=== PATIENT | female | born 1975 | race Caucasian/White ===

== ENCOUNTER 2017-01-28 12:01 | Emergency (ER) | payer MEDICAID ==
[2017-01-28 15:02] LABS: BASOPHIL % 0.6 % (0-2); PLATELET COUNT 336 x10^3mcL (130-400); RED CELL DISTRIBUTION WIDTH 13.3 % (11.5-14.5)
[2017-01-28 15:15] LABS: microscopic required? YES; urine erythrocyte NEGATIVE (NEGATIVE)
[2017-01-28 15:19] LABS: ALBUMIN 3.5 g/dL (3.4-5.0); ALKALINE PHOSPHATASE 78 U/L (46-116); ALT/SGPT 23 U/L (14-59); AST/SGOT 13 U/L (15-37); BILIRUBIN TOTAL 0.48 mg/dL (0.20-1.00); CALCIUM 9.2 mg/dL (8.5-10.1); CARBON DIOXIDE 26.7 mmol/L (21-32); CHLORIDE SERUM 94 mmol/L (98-107); CREATININE SERUM 0.5 mg/dL (0.6-1.0); GFR1 > 60 mL/min; GLUCOSE SERUM 123 mg/dL (74-106); LIPASE 271 IU/L (73-393); SODIUM SERUM 133 mmol/L (136-145); TOTAL PROTEIN, SERUM 7.4 g/dL (6.4-8.2)
[2017-01-28 15:24] LABS: POTASSIUM SERUM 2.7 mmol/L (3.5-5.1)
[2017-01-28 17:22] VITALS: BP 135/86
== END 2017-01-28 17:22 | disposition home or self-care (01) ==
LOC: ED 12:01
PROVIDERS: Emergency Medicine
DX: N12 Tubulo-interstitial nephritis, not specified as acute or chronic (principal); E11.9 Type 2 diabetes mellitus without complications; Z79.84 Long term (current) use of oral hypoglycemic drugs
CPT/HCPCS: 82962; J0696; J2405; J7030

== ENCOUNTER 2018-06-23 17:20 | Emergency (ER) | payer MEDICAID ==
[~2018-06-23] VITALS: Ht 142.2 cm; Wt 45.4 kg
[2018-06-23 17:46] VITALS: Ht 142.2 cm; Wt 45.4 kg
[2018-06-23 19:14] LABS: BASOPHIL % 0.2 % (0-2); PLATELET COUNT 239 x10^3mcL (130-400); RED CELL DISTRIBUTION WIDTH 13.1 % (11.5-14.5)
[2018-06-23 19:25] LABS: CALCIUM 8.4 mg/dL (8.5-10.1); CARBON DIOXIDE 28.2 mmol/L (21-32); CHLORIDE SERUM 100 mmol/L (98-107); CREATININE SERUM 0.6 mg/dL (0.6-1.0); GFR1 > 60 mL/min; GLUCOSE SERUM 146 mg/dL (74-106); POTASSIUM SERUM 3.5 mmol/L (3.5-5.1); SODIUM SERUM 137 mmol/L (136-145)
[2018-06-23 19:35] LABS: ALKALINE PHOSPHATASE 96 U/L (46-116); ALT/SGPT 20 U/L (14-59); AMYLASE 50 U/L (25-115); AST/SGOT 11 U/L (15-37); BILIRUBIN TOTAL 0.36 mg/dL (0.20-1.00); LIPASE 115 IU/L (73-393); TOTAL PROTEIN, SERUM 7.2 g/dL (6.4-8.2)
[2018-06-23 19:42] LABS: ALBUMIN 3.2 g/dL (3.4-5.0)
[2018-06-23 20:14] VITALS: BP 99/68
== END 2018-06-23 20:10 | disposition home or self-care (01) ==
LOC: ED 17:20
PROVIDERS: Emergency Medicine
DX: R10.13 Epigastric pain (principal); E11.9 Type 2 diabetes mellitus without complications; R11.10 Vomiting, unspecified
CPT/HCPCS: J1885; Q0092

== ENCOUNTER 2018-07-13 10:32 | Inpatient (IN) | payer MEDICAID ==
[~2018-07-13] VITALS: Ht 149.9 cm; Wt 45.0 kg
[2018-07-13 10:35] VITALS: Ht 149.9 cm; Wt 45.0 kg
--- NOTE | 2018-07-13 11:13 | NUR ---
PT AAOX3, VSS, BREATHING EASY AND UNLABORED. PT MEDICATED PER ERP'S ORDERS AND RESTING COMFORTABY IN BED. BLANKET OFFERED TO PT.
--- NOTE | 2018-07-13 11:32 | NUR ---
PT AWARE OF NEEDED URINE SPECIMEN.
[2018-07-13 11:44] LABS: BASOPHIL % 0.2 % (0-2); PLATELET COUNT 254 x10^3mcL (130-400); RED CELL DISTRIBUTION WIDTH 13.1 % (11.5-14.5)
--- NOTE | 2018-07-13 11:46 | NUR ---
PT REPORTS FEELING "LITTLE" DIZZY. PT ASSISTED VIA WHEELCHAIR BY JUSTUS SOTO.
[2018-07-13 11:50] LABS: CALCIUM 9.1 mg/dL (8.5-10.1); CARBON DIOXIDE 25.3 mmol/L (21-32); CHLORIDE SERUM 98 mmol/L (98-107); CREATININE SERUM 0.6 mg/dL (0.6-1.0); GFR1 > 60 mL/min; GLUCOSE SERUM 116 mg/dL (74-106); POTASSIUM SERUM 3.9 mmol/L (3.5-5.1); SODIUM SERUM 133 mmol/L (136-145)
[2018-07-13 11:59] LABS: ALKALINE PHOSPHATASE 103 U/L (46-116); ALT/SGPT 23 U/L (14-59); AST/SGOT 15 U/L (15-37); BILIRUBIN TOTAL 0.2 mg/dL (0.20-1.00); LIPASE 335 IU/L (73-393); TOTAL PROTEIN, SERUM 7.2 g/dL (6.4-8.2)
[2018-07-13 12:00] LABS: ALBUMIN 3.2 g/dL (3.4-5.0)
--- NOTE | 2018-07-13 13:29 | NUR ---
NO VOMITING AT THIS TIME.
--- NOTE | 2018-07-13 14:08 | NUR ---
PT VOMITED X1. DR WHITAKER, ERP, MADE AWARE.
--- NOTE | 2018-07-13 14:35 | NUR ---
DR WHITAKER, ERP, MADE AWARE OF PT'S C/O OF 10/10 EPIGASTRIC PAIN.
[2018-07-13 16:09] VITALS: BP 111/65
--- NOTE | 2018-07-13 16:12 | NUR ---
RECEIVED PT FROM ED VIA [employer]. ORIENTED PT TO ROOM AND SURROUNDINGS. IV NOTED TO RFA PATENT AND INTACT. INSTRUCTED PT ON THE USE OF CALL LIGHT FOR ASSISTANCE. BED IN LOWEST POSITION AND SIDE RAILS UPX2
--- NOTE | 2018-07-13 18:11 | NUR ---
PT AA/OX4. TEMP 98.6F TEMPORAL. NO REAVES. NO DIZZINESS. NAUSEOUS WITH DINNER. DECLINED TO MEDICATION AT THIS TIME. PT SHIVERING. WARM BLANKET GIVEN. NO S/S OF ACUTE DISTRESS. RR EVEN/UNLABORED. CHEST EXPANSION SYMMETRICAL. DENIES CHEST PAIN. FAMILY AT BEDSIDE. NO COUGH NOTED. BED IN LOW POSITION. CALL LIGHT WITHIN REACH. WILL ENDORSE TO ONCOMING SHIFT.
--- NOTE | 2018-07-13 20:00 | NUR ---
RECEIVED PT IN BED, A/OX4. DENIES HEADACHE/DIZZINESS. RESP. EVEN AND UNLABORED. LUNG SOUNDS CLEAR BILAT. ON ROOM AIR, NO ACUTE DISTRESS NOTED. AFEBRILE AND VITAL SIGNS STABLE. NO TELE,DENIES CP OR ANY DISCOMFORT AT THIS TIME. IVF, NS AT 50ML/HR, INTACT AND INFUSING VIA RFA, SITE CLEAR. ABD. SOFT, NON DISTENDED, NO N/V NOTED AT THIS TIME. PT STATES UNABLE TO PATRICIA. PO . ASSISTED WITH HS CARE. CALL LIGHT WITHIN REACH. WILL CONTINUE TO MONITOR.
[2018-07-13 20:45] VITALS: BP 97/73
--- NOTE | 2018-07-14 00:16 | NUR ---
NO COMPLAINTS NOTED AT THIS TIME. EYES CLOSED, APPEARS ASLEEP, EASILY AROUSABLE. CALL LIGHT WITHIN REACH. WILL CONTINUE TO MONITOR.
--- NOTE | 2018-07-14 03:00 | NUR ---
ASSISTED TO [facility] BATHROOM, VOIDED.NO COMPLAIN NOTED AT THIS TIME. WILL CONTINUE TO MONITOR.
[2018-07-14 05:55] VITALS: BP 107/62
--- NOTE | 2018-07-14 06:29 | NUR ---
SLEPT WELL DURING THE NIGHT. NO COMPLAINTS NOTED. DUE MEDS GIVEN ORDERED. AFEBRILE AND VITAL SIGNS STABLE. RESP. EVEN AND UNLABORED. NO ACUTE DISTRESS NOTED. IVF INTACT AND INFUSING WELL, SITE CLEAR.DENIES ANY PAIN OR DISCOMFORT AT THIS TIME. NO BM NOTED . WILL CONTINUE TO MONITOR.
--- NOTE | 2018-07-14 08:00 | NUR ---
RECEIVED PATIENT SITTING UP IN BED A/O X4, CLEAR SPEECH, NO NEURO DEFICITS NOTED. BREATHING EVEN UNLABBORED ON RA, DENIES SOB, HOB ELEVATED. PATIENT VOMITED ABOUT 400 ML OF EMESIS AFTER EATING BREAKFAST, STATES SHE VOMITS AFTER SHE EATS. MEDICATED PATIENT WITH ZOFRAN 4 MG IVP (SEE eMAR). IV TO RFA INTACT INFUSING NS AT 50 ML/HR FREE FROM REDNESS AND INFILTRATION. ALL NEEDS ATTENDED TO. SAFETY PRECAUTIONS IN PLACE. WILL MONITOR.
--- NOTE | 2018-07-14 08:20 | NUR ---
SARAH FEDERAL JAVA DEVELOPER AT BEDSIDE TO SPEAK WITH PATIENT. INFORMED SARAH PATIENT CONTINUES TO THROW UP AFTER EVERY TIME SHE EATS, PATIENT THREW UP AFTER EATING BREAKFAST AND WAS GIVEN ZOFRAN IVP AT 0800. PER SARAH WILL CHANGE DIET TO CLEAR LIQUID AND WILL CONTACT TONYA SHIN TO EVALUATE PATIENT. PATIENT VERBALIZED UNDERSTANDING, ALL QUESTIONS AND CONCERNS ADDRESSED. SAFETY PRECAUTIONS IN PLACE.
--- NOTE | 2018-07-14 09:47 | NUR ---
RECEIVED CALL FROM ALEIDA WHO ASKED IF PATIENT IS NPO, INFORMED DR. SHIN PATIENT DID EAT BREAKFAST BUT THREW UP AFTER SHE WAS DONE AND WAS GIVEN ZOFRAN IVP AT 0800. DR. SHIN ASKED IF PATIENT SMOKES MARIJUANA, INFORMED DR. SHIN UNKNOWN IF PATIENT SMOKES MARIJUANA. PER DR. SHIN ORDER URINE DRUG SCREEN. WILL CARRY OUT ORDER. NURSE AID MADE AWARE.
[2018-07-14 10:26] VITALS: BP 126/81
[2018-07-14 11:53] LABS: AMPHETAMINE QUAL UR NONE DETECTED (See below)
--- NOTE | 2018-07-14 13:35 | NUR ---
PATIENT SITTING UP IN BED C/O N/V, MEDICATED WITH REGLAN IVP (SEE eMAR). ALL NEEDS ATTENDED TO. SAFETY PRECAUTIONS IN PLACE. WILL MONITOR.
--- NOTE | 2018-07-14 17:07 | NUR ---
PATIENT SITTING UP IN BED, DAUGHTER AT BEDSIDE. DUE MEDICATION GIVEN, TOLERATED WELL. ALL NEEDS ATTENDED TO. SAFETY PRECAUTIONS IN PLACE. WILL MONITOR.
[2018-07-14 17:46] VITALS: BP 110/63
--- NOTE | 2018-07-14 20:11 | NUR ---
SHIFT REASSESMENT DONE.PATIENT ALERT AND ORIENTED X 4.MAINLY [place]EN[place].NEEDS ANTICIPATED.BREATHING EASY.BRP AMBULATORY.NS AT 100 CC/ HOUR RFA.MEDS URG PATIENT.CLAIMED HER LAST BM 06/22/18.DO NOT HAVE APPETITE/NAUSEA SINCE ADMIT.SCD ORDERED.VOIDING PER BRP.CALL LIGHT IN REACH.
--- NOTE | 2018-07-14 21:00 | NUR ---
NEW ARMBAND APPLIED,ED ARMBAND REMOVED.
[2018-07-14 21:22] VITALS: BP 106/65
--- NOTE | 2018-07-14 22:16 | NUR ---
ALL PM MEDS GIVEN WITHOUT ANY INCIDEDNT,GIVEN DULCOLAX,RECORD SAYS LAST BM 06/22/18
--- NOTE | 2018-07-15 00:41 | NUR ---
PATIENT HAD DULCOLAX TAB X 2 EARLIER,CRAMPING NOW BECAUSE OF DULCOLAX.DR ROGERS MADE AWARE.
--- NOTE | 2018-07-15 01:26 | NUR ---
DR ROGERS ORDERED TORADOL 30 MG IVP AND GIVEN.
--- NOTE | 2018-07-15 02:03 | NUR ---
PATIENT NOW NOT CRYING NOW,HAD TORADOL IVP.
[2018-07-15 05:52] VITALS: BP 111/65
[2018-07-15 05:54] VITALS: BP 142/70
--- NOTE | 2018-07-15 06:09 | NUR ---
ABLE TO REST,I AND O MEASURED.NS AT 100 CC/ HOUR.WILL ENDORSE TO NEXT SHIFT.
[2018-07-15 07:16] LABS: CALCIUM 8.5 mg/dL (8.5-10.1); CARBON DIOXIDE 24.9 mmol/L (21-32); CHLORIDE SERUM 105 mmol/L (98-107); CREATININE SERUM 0.4 mg/dL (0.6-1.0); GFR1 > 60 mL/min; GLUCOSE SERUM 118 mg/dL (74-106); POTASSIUM SERUM 3.6 mmol/L (3.5-5.1); SODIUM SERUM 138 mmol/L (136-145)
--- NOTE | 2018-07-15 08:00 | NUR ---
RECEIVED PATIENT WHO IS SLEEPING SOUNDLY AT THIS TIME. CONTINUED ON IV FLUIDS AND TOLERATE WELL SO FAR. CONTINUED ON REGLAN AND PROTONIX ORDERED. PATIENT AHS DIMINISHED BUT CLEAR BREATH SOUNDS AND BOWEL SOUNDS ARE HYPOACTIVE AT THIS TIME. PATIENT HAS BEEN ADMITTED FOR ABDOMINAL PAIN AND GASTROPARESIS. PATIENT HAS HISTORY OF DIABETES TYPE TWO. PATIENT HAD THE BLOOD SUGAR AT 107 THIS AM AND HAS BEEN WITH CLEAR LIQUID DIET AND HAS BEEN WITH NOTED VITALS AT 124/71, 92, 18, 95%, 97.8. CT IS NEGATIVE FOR DIVERTCULI OR GALLSTONES. SHE HAS BEEN NEGATIVE FOR KIDNEY STONES OR MASS. PATIENT HAS NOTED LABS OF WBC AT 12.5 AND SHE HAS AIC AT 7.0. WILL CONTINUE ON PRESENT PLAN OF CARE. NO ACUTE DISTRESS AT THIS TIME.
[2018-07-15 08:03] LABS: BASOPHIL % 0.3 % (0-2); PLATELET COUNT 215 x10^3mcL (130-400); RED CELL DISTRIBUTION WIDTH 13.2 % (11.5-14.5)
[2018-07-15 09:40] VITALS: BP 124/77
--- NOTE | 2018-07-15 10:58 | NUR ---
GAVE PROTONIX AND SHE IS MOSTLY SLEEPING AT THIS TIME SHE WOKE UP AND HAS THE HICCUPS. WILLL MONITO RFOR VOMITING AND CONTINUE NAUSEA.
--- NOTE | 2018-07-15 12:40 | NUR ---
DR XIONG AT THIS TIME HERE TO SEE PATIENT AND PER DR XIONG PATIENT CAN BE DISCHARGED HOME TODAY. SARAH -FOOD AND BEVERAGE ASSISTANT MADE AWARE. NO NEW ORDERS RECEIVED AT THIS TIME. ATTENDING NURSE MAU BAGLEY.
--- NOTE | 2018-07-15 13:57 | NUR ---
PERIODIC HICUPS NOTED AND PATIENT SO FAR HAS NOT HAD AN EMESIS.
--- NOTE | 2018-07-15 16:31 | NUR ---
DAUGHTER AT BEDSIDE AND PATIENT TOELRATED LUNCH OF LIQUID DIET. SHE HAS NOT REPORTED ANY VOMITING. CONTINUED ON PRESENT PLAN OF CARE.
[2018-07-15 17:37] VITALS: BP 105/68
--- NOTE | 2018-07-15 18:08 | NUR ---
TOLERATED THE CLEAR LIQUID DIET AND GAVE CARAFATE ORDERED. NO EMESIS AT THIS TIME.
--- NOTE | 2018-07-15 19:15 | NUR ---
REPORT RECIEVED FROM DAY SHIFT RN. PATIENT WAS SEEN AND IS RESTING COMOFRTBALY IN BED AT THIS TIME. ON ROOM AIR. NO SOB OR DISTRESS NOTED. DENIES CHEST PAIN. NO C/O OF PAIN. IV TO THE RFA WITH NS RUNNING AT 100ML/HR. PATENT AND INTACT. NO REDNESS OR SWELLING NOTED. PATENT STATES SHE IS SLIGHTLY NAUSEOUS AT THIS TIME. COMFORT AND SAFETY MEASURES MAINTAINED. BED IS LOCKED AND IN THE LOWEST POSITION. SIDE RAILS UP X2. CALL LIGHT IS WITHIN REACH. INSTRUCTED PATIENT TO CALL FOR ASSISTANCE. PATIENT VERBALIZED UNDERSTANDING. WILL CONTINUE TO MONITOR.
[2018-07-15 21:25] VITALS: BP 102/56
--- NOTE | 2018-07-16 02:06 | NUR ---
WBC IS ELEVATED AT 12.5. DR. ROGERS NOTIFIED AND AWARE. PATIENT'S TEMP IS 97.7. NOT SYMPTOMATIC. DR. ROGERS STATED TO WAIT FOR AM LABS. WILL CONTINUE TO MONITOR PATIENT AND HER TEMP.
--- NOTE | 2018-07-16 02:48 | NUR ---
PATIENT THREW UP 200ML CLEAR YELLOW COLOR.
--- NOTE | 2018-07-16 03:03 | NUR ---
PATIENT IS RESTING COMFORTBALY IN BED AT THIS TIME. NO SOB OR DISTRESS NOTED. BREATHING IS EVEN AND UNLABORED. IV INFUSING WELL TO THE RFA. CALL LIGHT SI WITHIN REACH. INSTRUCTED PATIENT TO PEE IN THE HAT FOR UA. INSTURCTED PATIENT TO CALL FOR ASSISTANCE. WILL CONTINUE TO MONITOR
[2018-07-16 03:43] LABS: microscopic required? YES; urine erythrocyte 2+ (NEGATIVE)
[2018-07-16 05:05] VITALS: BP 137/63
--- NOTE | 2018-07-16 06:34 | NUR ---
PATIENT SLEPT IN INTERVALS THROUGHOUT THE NIGHT. ON ROOM AIR. NO ACUTE CHANGES NOTED. BREATHING IS EVEN AND UNLABORED. PATIENT STATES SHE HAS EPIGASTRIC PAIN, BUT DID NOT WANT PRN PAIN MEDS. COMFORT AND SAFETY MEASURES MAINTAINED. CALL LIGHT IS WITHIN REACH. PATIENT AWARE TO CALL FOR ASSISTANCE. BED IS LOCKED AND IN THE LOWEST POSITION. SIDE RAILS UP X2. WILL ENDORSE CARE TO DAY SHIFT RN.
[2018-07-16 07:24] LABS: BASOPHIL % 0.4 % (0-2); PLATELET COUNT 226 x10^3mcL (130-400); RED CELL DISTRIBUTION WIDTH 13.4 % (11.5-14.5)
--- NOTE | 2018-07-16 07:35 | NUR ---
PT RESTING IN BED, NO ACUTE DISTRESS NOTED. AOX4, DENIES REAVES/DIZZINESS. MEDSURH PT, DENIES CP. PULSES PALPABLE BIALT, DENIES NUMBNESS/TINGLING IN FEET. RESP EVEN AND UNLABORED ON RA, DENIES SOB. ABD SOFT, ROUND, DENIES ABD PAIN. PT DENIES NAUSEA AT THIS TIME. BRP, DENIES DYSURIA. AMBULATORY. SKIN INTACT. IV SITE TO RFA PATENT, NO REDNESS, SWELLING OR PAIN NOTED. ALL COMFORT AND SAFETY MEASURES PROVIDED FOR CALL LIGHT WITHIN REACH, BED IN LOWEST POSITION, WILL CONTINUE TO MONITOR.
[2018-07-16 07:47] LABS: CARBON DIOXIDE 26.2 mmol/L (21-32); CHLORIDE SERUM 104 mmol/L (98-107); CREATININE SERUM 0.4 mg/dL (0.6-1.0); GFR1 > 60 mL/min; GLUCOSE SERUM 125 mg/dL (74-106); MAGNESIUM 1.5 mg/dL (1.8-2.4); SODIUM SERUM 139 mmol/L (136-145)
[2018-07-16] MEDS ORDERED: CARAFATE1 GM PO (08:55)
[2018-07-16] MEDS ORDERED: PROTONIX20 MG PO (08:55)
[2018-07-16] MEDS ORDERED: GLU500 PO (08:56)
[2018-07-16 10:07] VITALS: BP 122/70
[2018-07-16 10:17] VITALS: BP 122/70
--- NOTE | 2018-07-16 12:15 | NUR ---
ENDORSED ALL CARE TO DAYSHIFT NURSE, ALL QUESTIONS AND CONCERNS ADDRESSED, NO ACUTE DISTRESS NOTED. CALL LIGHT WITHIN REACH, BED IN LOWEST POSITION.
--- NOTE | 2018-07-16 12:15 | NUR ---
DISCHARGE INSTRUCTIONS GIVEN TO PT INCLUDING FOLLOW-UP W/ PCP. NEW PRESCRIPTION REVIEWED W/ THE PT. TELEPHONE PRIMER ASSEMBLER USED W/ [employer] NUMBER [id number]. PT VERBALIZES UNDERSTANDING. PT STATED THAT HER FAMILY WILL BE ABLE TO PICK HER UP AT AROUND 1500H. INSTRUCTED PT TO CALL WHEN FAMILY IS AT BEDSIDE. PT VERBALIZES UNDERSTANDING
--- NOTE | 2018-07-16 15:25 | NUR ---
PT WHEELED DOWN BY ANGELO IRVING. PT'S SISTER AT BEDSIDE. PT DISCHARGED
== END 2018-07-16 15:25 | disposition home or self-care (01) | DRG 48 ==
LOC: ED 10:32 → MU 15:09
PROVIDERS: Emergency Medicine; Internal Medicine; ADMIT Internal Medicine
DX: E11.43 Type 2 diabetes mellitus with diabetic autonomic (poly)neuropathy (principal); E44.0 Moderate protein-calorie malnutrition; K31.84 Gastroparesis
CPT/HCPCS: 82962; C9113; J1885; J2270; J2405; J2765; J3490; J7030

== ENCOUNTER 2018-07-31 14:17 | Emergency (ER) | payer MEDICAID ==
[~2018-07-31] VITALS: Ht 152.4 cm; Wt 61.2 kg
[~2018-07-31 14:17] MED LIST: CARAFATE1 GM PO; GLU500 PO; PROTONIX20 MG PO
[2018-07-31 14:41] VITALS: Ht 152.4 cm; Wt 61.2 kg
[2018-07-31 17:08] LABS: BASOPHIL % 0.2 % (0-2); PLATELET COUNT 190 x10^3mcL (130-400)
[2018-07-31 17:15] LABS: RED CELL DISTRIBUTION WIDTH 14.6 % (11.5-14.5)
[2018-07-31 17:38] LABS: CALCIUM 8.4 mg/dL (8.5-10.1); CARBON DIOXIDE 22.9 mmol/L (21-32); CHLORIDE SERUM 107 mmol/L (98-107); CREATININE SERUM 0.4 mg/dL (0.6-1.0); GFR1 > 60 mL/min; GLUCOSE SERUM 132 mg/dL (74-106); POTASSIUM SERUM 3.2 mmol/L (3.5-5.1); SODIUM SERUM 142 mmol/L (136-145)
[2018-07-31 17:43] LABS: ALKALINE PHOSPHATASE 70 U/L (46-116); ALT/SGPT 37 U/L (14-59); AMYLASE 51 U/L (25-115); AST/SGOT 20 U/L (15-37); BILIRUBIN TOTAL 0.49 mg/dL (0.20-1.00); CHOLESTEROL 143 mg/dL (<200); HDL CHOLESTEROL 48 mg/dL (40-60); LIPASE 86 IU/L (73-393); TOTAL PROTEIN, SERUM 6.9 g/dL (6.4-8.2)
[2018-07-31 17:46] LABS: ALBUMIN 3.1 g/dL (3.4-5.0)
[2018-07-31 19:05] LABS: microscopic required? NO
[2018-07-31 19:28] LABS: UA SPECIFIC GRAVITY 1.015 (1.005-1.035); urine erythrocyte NEGATIVE (NEGATIVE)
[2018-07-31 19:35] LABS: AMPHETAMINE QUAL UR NONE DETECTED (See below)
[2018-07-31 20:30] VITALS: BP 101/63
== END 2018-07-31 20:30 | disposition home or self-care (01) ==
LOC: ED 14:17
PROVIDERS: Emergency Medicine
DX: E87.6 Hypokalemia (principal); R11.2 Nausea with vomiting, unspecified; K31.84 Gastroparesis; E46 Unspecified protein-calorie malnutrition; N39.0 Urinary tract infection, site not specified; E11.9 Type 2 diabetes mellitus without complications
CPT/HCPCS: 82962; J0696; J2060; J2405; J2765; J3490; J7030; Q0092